=== PATIENT | male | born 1950 | race Caucasian/White ===

== ENCOUNTER 2020-12-14 14:02 | Inpatient (IN) | payer OTHER ==
[~2020-12-14] VITALS: Ht 193 cm; Wt 85.3 kg
[2020-12-14 14:07] VITALS: BP 154/108
[2020-12-14] MEDS ORDERED: ROSUVASTATIN CA20 MG PO (14:13)
[2020-12-14] MEDS ORDERED: COZAAR100 MG PO (14:14)
[2020-12-14 14:40] LABS: ABSOLUTE NEUTROPHILS 5.4 thou/uL (1.4-8.2); BASOPHILS 0.4 % (0.0-2.0); EOSINOPHILS 1.6 % (0.0-3.0); HEMATOCRIT 46.1 % (42.0-52.0); HEMOGLOBIN 15.4 gm/dL (14.0-18.0); LYMPHOCYTES 14.1 % (24.0-44.0); MCH 30.8 pg (26.0-34.0); MCHC 33.4 g/dL (28.0-37.0); MCV 92.4 fL (80.0-100.0); MONOCYTES 7.5 % (1.0-8.0); PLATELET COUNT 249 thou/uL (150-400); POLYS 76.4 % (36.0-66.0); RBC 4.99 mil/uL (4.50-6.00); RDW 14.4 % (10.5-14.5); WBC 7.1 thou/uL (4.0-11.0)
[2020-12-14 14:44] LABS: ANION GAP 13 mmol/L (7-16); BUN 19 mg/dL (7-18); CALCIUM 9.3 mg/dL (8.5-10.1); CHLORIDE 106 mmol/L (98-107); CO2 22 mmol/L (21-32); CREATININE 1.8 mg/dL (0.7-1.3); GLUCOSE 112 mg/dL (74-106); POTASSIUM 4.1 mmol/L (3.5-5.1); SODIUM 141 mmol/L (136-145)
[2020-12-14 14:55] LABS: ALBUMIN 4.3 g/dL (3.4-5.0); DIRECT BILIRUBIN 0.2 mg/dL (<0.1-0.2); SGOT 22 U/L (15-37); SGPT 30 U/L (30-65); TOTAL BILIRUBIN 0.8 mg/dL (0.2-1.0); TOTAL PROTEIN 7.7 g/dL (6.4-8.2); TROPONIN-I <0.06 ng/mL (<0.06)
[2020-12-14 16:03] VITALS: BP 110/78
--- NOTE | 2020-12-14 16:19 | EKG ---
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
[2020-12-14 16:26] VITALS: BP 92/57
--- NOTE | 2020-12-14 18:16 | NUR ---
PT IS AXOX4, PLEASANT. PT AT THE BEDSIDE. COMPLETED ADMISSION TO THE UNIT. CONDUCTED PT EDUCATION ON CURRENT DIAGNOSIS, MEDICATIONS. PT IS ON CARDIZEM DRIP AT 5ML/HR. POC IS TO CONTINUE TO MONITOR BP/HR. PT VSS, AFEBRILE. LOW FALL PRECAUTIONS IN PLACE. PT IS UP AD EFRA TO TOILET. NO CONCERNS AT THIS TIME.
[2020-12-14 20:04] VITALS: BP 96/53
[2020-12-15 00:09] VITALS: BP 94/60
[2020-12-15 04:12] VITALS: BP 109/71
[2020-12-15 05:48] LABS: ANION GAP 7 mmol/L (7-16); BUN 18 mg/dL (7-18); CALCIUM 8.7 mg/dL (8.5-10.1); CHLORIDE 108 mmol/L (98-107); CHOLESTEROL 125 mg/dL (<200); CO2 27 mmol/L (21-32); CREATININE 1.4 mg/dL (0.7-1.3); GLUCOSE 93 mg/dL (74-106); HDL CHOLESTEROL 36 mg/dL (>40); LDL CHOLESTEROL 71 mg/dL (<100); POTASSIUM 4.2 mmol/L (3.5-5.1); SODIUM 142 mmol/L (136-145); TC:HDL 3.5 Ratio (Not establshd); TRIGLYCERIDE 93 mg/dL (<150); VLDL 19 mg/dL (<40)
[2020-12-15 06:06] LABS: SERUM ASSESSMENT Clear
--- NOTE | 2020-12-15 07:48 | NUR ---
PT UP ADLIB IN ROOM, NO C/O PAIN, CARDIZEM GTT TITTRATED DOWN TO 5MG/HR AT 2300 AND TURNED OFF AT 0030 AFTER HR SLOWED TO MID 60'S AND PAUSES, WILL CON'T TO MONITOR PER PPOC.
[2020-12-15 07:51] VITALS: BP 119/70
--- NOTE | 2020-12-15 10:00 | 2DMMODE ---
[facility] [place] [address] 2 D/M-MODE ECHOCARDIOGRAM Name: KAYLA WYNN Room #: 209-P ADM IN M.R.#: [id number] Admission: 12/14/20 Attend Phys: Josef Moreno MD Discharge: Date of : 54 Report #: [id number] THIS REPORT FOR: cc: Narda Styles MD, Shazia MD Park, Jin S. MD ~ APPROVED REPORT Study performed: 12/15/2020 09:18:17 EXAM: Comprehensive 2D, Doppler, and color-flow Echocardiogram Patient Location: Bedside Room #: 209 Status: routine BSA: 2.12 HR: 133 bpm BP: 119/70 mmHg Rhythm: Atrial Flutter Other Information Study Quality: Good Indications Aflutter 2D Dimensions RVDd: 31.93 mm IVSd: 13.00 (7-11mm) LVOT Diam: 23.00 (18-24mm) LVDd: 40.00 mm PWd: 13.01 (7-11mm) Ascending Ao: 38.83 (22-36mm) LVDs: 27.71 (25-40mm) Left Atrium: 35.52 (27-40mm) Aortic Root: 43.25 mm Volumes Left Atrial Volume (Systole) Single Plane 4CH: 48.04 mL Single Plane 2CH: 62.61 mL LA ESV Index: 28.00 mL/m2 Aortic Valve AoV Peak Jon.: 1.06 m/s AO Peak Gr.: 4.49 mmHg LVOT Max P.76 mmHg LVOT Max V: 0.97 m/s CHICO Vmax: 3.76 cm2 [facility] [email or web address] [address] 2 D/M-MODE ECHOCARDIOGRAM Name: KAYLA WYNN Room #: 209-P ADM IN Jaclyn.#: [id number] Admission: 12/14/20 Attend Phys: Josef Moreno MD Discharge: Date of : 54 Report #: [id number] Pulmonary Valve PV Peak Jon.: 0.80 m/s PV Peak Gr.: 2.53 mmHg Tricuspid Valve TR Peak Jon.: 2.14 m/s RAP Estimate: 5.00 mmHg TR Peak Gr.: 18.39 mmHg PA Pressure: 23.00 mmHg Left Ventricle The left ventricle is normal size. There is normal LV segmental wall motion. Mild concentric left ventricular hypertrophy. Left ventricular systolic function is normal. LVEF is 60-65%. This study is not technically sufficient to allow evaluation of the LV diastolic function due to atrial flutter. Right Ventricle The right ventricle is normal size. The right ventricular systolic function is normal. Atria The left atrium size is normal. The right atrium size is normal. Aortic Valve The aortic valve is normal in structure. No aortic regurgitation is present. There is no aortic valvular stenosis. Mitral Valve The mitral valve is normal in structure. Trace mitral regurgitation. No evidence of mitral valve stenosis. Tricuspid Valve The tricuspid valve is normal in structure. Trace tricuspid regurgitation. Estimated PAP is 23mmHg. Pulmonic Valve The pulmonary valve is normal in structure. Trace pulmonic regurgitation. Great Vessels Aortic root is dilated at 4.3cm. The ascending aorta is mildly dilated at 3.9cm. IVC is normal in size and collapses >50% with inspiration. Pericardium [facility] [address] [place] [address] 2 D/M-MODE ECHOCARDIOGRAM Name: KAYLA WYNN Room #: 209-P ADM IN M.R.#: [id number] Admission: 12/14/20 Attend Phys: Josef Moreno MD Discharge: Date of : 54 Report #: [id number] Small posterior pericardial fluit noted. <Conclusion> The left ventricle is normal size. Mild concentric left ventricular hypertrophy. Left ventricular systolic function is normal. The right ventricle is normal size. The left atrium size is normal. The aortic valve is normal in structure. Trace mitral regurgitation. Trace tricuspid regurgitation. Estimated PAP is 23mmHg. <ELECTRONICALLY SIGNED> By: Kyler Arnett MD 12/15/20 1000 1000 1000 Kyler Arnett MD /INF
--- NOTE | 2020-12-15 10:04 | NUR ---
P.T. SCREENED PT THIS A.M. PT UP AD EFRA PER RN AND OBSERVED AMBULATING AROUND ROOM DEMONSTRATING A STEADY, RECIPROCAL GAIT. PERFORMING ADLS IN BATHROOM INDEP. HR RUNNING IN MID 80S. PT WITHOUT ACUTE P.T. NEEDS AT THIS TIME. REQUEST RE-CONSULT IF MOBILITY STATUS CHANGES AFTER COMPLETION OF CARDIOLOGY DIAGNOSTICS AND POSSIBLE INTERVENTION.
[2020-12-15 11:11] VITALS: BP 95/53
[2020-12-15 15:13] VITALS: BP 104/68
--- NOTE | 2020-12-15 16:51 | NUR ---
ASSUMED CARE OF PT AT SHIFT CHANGE. ASSESSMENT CHARTED. MEDS GIVEN PER DEC. PT A&OX4, NO C/O PAIN OR DISTRESS. PT IN A FLUTTER ON MONITOR, CARDIZEM DRIP AT 5, RATES 60-70. PLAN FOR CHRISTINA AND ABLATION TOMORROW. WILL CONTINUE TO MONITOR FOR CHANGES AND FOLLOW POC.
[2020-12-15 20:08] VITALS: BP 106/64
[2020-12-16] VITALS (16 sets, daily range): BP systolic 88–114; BP diastolic 57–79
--- NOTE | 2020-12-16 06:35 | NUR ---
Patient slept well through the night. Heart rate and rhythm stable atrial flutter in the 60's and 70's. Blood pressures stable. Cardizem continues at 5 mg/hr. Adequate oxygenation on room air. Up to BR to void, adequate amounts. NPO since midnight. Consent signed for am CHRISTINA and possible cardioversion. See documemtation on interventions for assessment details. Patient is progressing towards goals.
--- NOTE | 2020-12-16 11:22 | TEE ---
[facility] [place] [address] TRANSESOPHAGEAL ECHOCARDIOGRAM Name: KAYLA WYNN Room #: 209-P ADM IN M.R.#: [id number] Admission: 12/14/20 Attend Phys: Josef Moreno MD Discharge: Date of : 54 Report #: [id number] THIS REPORT FOR: cc: Narda Styles MD, Shazia MD Santiago, Patrick MD [facility] ~ APPROVED REPORT Study performed: 12/16/2020 10:34:16 EXAM: Comprehensive 2D, Doppler, and color-flow Echocardiogram Patient Location: Out-Patient Room #: 1 Status: routine BSA: 2.12 HR: 129 bpm BP: 120/70 mmHg Rhythm: Atrial Flutter Other Information Study Quality: Good Indications Atrial flutter Echo Enhancing Agent Indication: Rule out Shunt Agent(s) / Amount(s) Used: Agitated Saline 10 cc Procedure After obtaining informed consent, patient underwent transesophageal echo in the EP Lab. Type of Sedation : Conscious Sedation Sedation was administered by Anesthesiologist. Sedation start time: 1040 Case end Time: 1050 Sedation was achieved intravenously with: Versed (1 mg) Fentanyl (50 mcg) Propofol (100 mcg) Transesophageal probe was inserted and advanced into esophagus without difficulty by Ulices Velez MD. Echo enhancement indication: R/O Septal defect. Echo enhancement agent administered: Agitated Saline The CHRISTINA was performed without complications. Throughout the procedure, the blood pressure, pulse oximetry, cardiac [facility] [address] [place] [address] TRANSESOPHAGEAL ECHOCARDIOGRAM Name: KAYLA WYNN Room #: 209-P ADM IN M.R.#: [id number] Admission: 12/14/20 Attend Phys: Josef Moreno MD Discharge: Date of : 54 Report #: [id number] rhythm, and rate were monitored. The patient tolerated the procedure without adverse effects. Recovery from conscious sedation was uneventful and vital signs were stable. Left Ventricle The left ventricle is normal size. There is normal LV segmental wall motion. Mild concentric left ventricular hypertrophy. The left ventricular systolic function is normal. The left ventricular ejection fraction is within the normal range. LVEF is 60-65%. Right Ventricle The right ventricle is normal size. The right ventricular systolic function is normal. Atria The left atrium size is normal. The right atrium size is normal. Aortic Valve The aortic valve is normal in structure. No aortic regurgitation is present. There is no aortic valvular stenosis. Mitral Valve The mitral valve is normal in structure. Trace to mild mitral regurgitation. No evidence of mitral valve stenosis. Tricuspid Valve The tricuspid valve is normal in structure. There is no tricuspid valve regurgitation noted. Pulmonic Valve The pulmonary valve is normal in structure. There is no pulmonic valvular regurgitation. Great Vessels The aortic root is normal in size. Pericardium There is no pericardial effusion. <Conclusion> Anesthesia was present Atrial flutter present Patient was sedated for CHRISTINA and subsequent ablation After appropriate sedation, esophageal probe was advanced without [facility] [address] [place] [address] TRANSESOPHAGEAL ECHOCARDIOGRAM Name: KAYLA WYNN Room #: 209-P [facility] IN M.R.#: [id number] Admission: 12/14/20 Attend Phys: Josef Moreno MD Discharge: Date of : 54 Report #: [id number] difficulty Left atrial appendage, moderate size no obvious mass or clot detected Normal left ventricle size/wall thickness ejection fraction 60-65% Normal atrial size Color-flow Doppler study was performed of the aortic/mitral/tricuspid/pulmonary valve Normal aortic valve structure and function Mild mitral valve insufficiency No evidence of tricuspid valve insufficiency No evidence of ASD/VSD by color flow/bubble study No pericardial effusion <ELECTRONICALLY SIGNED> By: Ulices Velez MD, FACC 12/16/201120 20 20 Ulices Velez MD, FACC /INF
[2020-12-16 11:30] LABS: APTT 26.2 Seconds (24.5-32.8); PROTIME 11.1 Seconds (9.3-11.4)
[2020-12-16] MEDS ORDERED: ELIQUIS5 MG PO (12:16)
[2020-12-16] MEDS ORDERED: METOPROLOL SUCC25 M1 PO (12:16)
[2020-12-17 03:53] LABS: CALCIUM 8.7 mg/dL (8.5-10.1); CREATININE 1.3 mg/dL (0.7-1.3); POTASSIUM 4.3 mmol/L (3.5-5.1)
--- NOTE | 2020-12-17 04:05 | NUR ---
PT RESTING QUIETLY IN ROOM, VSS, RIGHT GROIN CDI, HR AND RHYTHM STABLE, NO C/O PAIN, PLANNING TO GO HOME THIS AM, WILL CONT' TO MOITOR PER PPOC.
[2020-12-17 04:35] VITALS: BP 118/76
[2020-12-17] MEDS ORDERED: ELIQUIS5 MG PO (08:57)
[2020-12-17 11:11] VITALS: BP 122/67
--- NOTE | 2020-12-17 12:04 | NUR ---
PT IS AXOX4, PLEASANT. PT WAS RESTING COMFORTBALY IN CHAIR, DENIES PAIN. CONCERNS FOR DISCHARGE WERE TO ASK DR FOR RX TO BE SENT TO [facility]. RN CONDUCTED PT EDUCATION ON RX MEDICATIONS. PT AT THE BEDSIDE. DR REYES CONSULTED. POC TO DISCHARGE PT HOME WITH VIA PERSONAL VEHICLE. DISCHARGE EDUCATION INCLUDED POST ABLATION CARE, MEDICATIONS, AND FOLLOW UP APPTS. PT COMMUNICATED UNDERSTANDING. NO CONCERNS AT THIS TIME.
--- NOTE | 2020-12-20 16:13 | HC ---
[facility] [place] [address] CONSULTATION Name: KAYLA WYNN Room #: 209-[facility] IN M.R.#: [id number] Admission: 12/14/20 Attend Phys: Josef Moreno MD Discharge: 12/17/20 Date of : 54 Report #: [id number] THIS REPORT FOR: cc: Narda Styles MD, Shazia MD Couchonnal, Luis F. MD ~ ELECTROPHYSIOLOGY CONSULTATION REASON FOR CONSULTATION: Atrial flutter. HISTORY OF PRESENT ILLNESS: The patient is a 70-year-old male with history of hypertension, hyperlipidemia, who presents to the hospital with an atrial flutter with rapid ventricular response. There have been difficulties with rate control and I have been asked to be consulted for possible ablation. In speaking with the patient, he is feeling better. Denies any chest pain or chest tightness. He denies PND or orthopnea. He denies presyncope or syncope. PAST MEDICAL HISTORY: As above. SOCIAL HISTORY: Does not smoke, does drink some bourbon. FAMILY HISTORY: Noncontributory. ALLERGIES: Have been reviewed. MEDICATIONS: Have been reviewed. He is currently on a diltiazem drip and started on Eliquis today. REVIEW OF SYSTEMS: A 12-point review of systems was performed, negative other than what I mentioned above. PHYSICAL EXAMINATION: VITAL SIGNS: Temperature is 36.4, pulse 66, respirations 16, blood pressure 104/68, sats 100%. GENERAL: He is in no acute distress. HEENT: Oropharynx is clear. NECK: Supple. No thyromegaly or carotid bruits. HEART: Irregularly irregular with no JVD. LUNGS: Clear to auscultation bilaterally. ABDOMEN: Soft, nontender, nondistended. No hepatosplenomegaly. EXTREMITIES: There is no clubbing, cyanosis, edema. NEUROLOGIC: Cranial nerves 2-12 are intact. PSYCHIATRIC: He is appropriate. LABORATORY DATA: Have been reviewed. Normal CBC, normal chemistry with a creatinine of 1.4. His troponin is negative. His 12-lead EKG showed classic [facility] [address] [place] [address] CONSULTATION Name: KAYLA WYNN Room #: 209-P [facility] IN M.R.#: [id number] Admission: 12/14/20 Attend Phys: Josef Moreno MD Discharge: 12/17/20 Date of : 54 Report #: [id number] typical atrial flutter. His echocardiogram I reviewed and shows EF of 60-65% with no significant valvular abnormalities. ASSESSMENT: 1. Typical atrial flutter. PLAN: We will obtain COVID-19 testing tonight. The patient will be made n.p.o. after midnight. He will undergo a CHRISTINA tomorrow. If there is no evidence of left atrial appendage thrombus, we will proceed with atrial flutter ablation. We have discussed the details of the procedure including the risks, which include but not limited to bleeding, vascular damage, stroke, NE, and damage to [place] conduction system. After the ablation, it is possible that he can go home tomorrow and will need to remain on anticoagulation for the next 6-12 months. We will need to monitor for the development of atrial fibrillation down the road. I thank you for allowing me to participate in his care. <ELECTRONICALLY SIGNED> By: Miguel Ryder MD 12/20/20 1613 1623 1810 Miguel Ryder MD /nt
--- NOTE | 2020-12-20 16:13 | P ---
[facility] [place] [address] PROCEDURE REPORT Name: KAYLA WYNN Room #: 209-P [facility] IN M.R.#: [id number] Admission: 12/14/20 Attend Phys: Josef Moreno MD Discharge: 12/17/20 Date of : 54 Report #: [id number] THIS REPORT FOR: cc: Narda Styles MD, Shazia MD Couchonnal, Luis F. MD ~ DATE OF SERVICE: 12/16/2020 PREOPERATIVE DIAGNOSIS: Typical atrial flutter. POSTOPERATIVE DIAGNOSIS: Typical atrial flutter. PROCEDURES PERFORMED: 1. SVT ablation, CPT code 88138. 2. EP left atrial pacing and recording, CPT code 10736. 3. Intracardiac echo, CPT code 00497. 4. 3D mapping, CPT code 96330. HISTORY OF PRESENT ILLNESS: The patient is a 70-year-old presenting with typical atrial flutter. He has had difficult to control rates and therefore, we will proceed with ablation. ANESTHESIA: The patient underwent MAC anesthesia with no anesthesia related complications. DESCRIPTION OF PROCEDURE: The patient underwent informed consent. We discussed the details of the procedure including the risks, which include but not limited to bleeding, vascular damage, stroke, [place] as well as damage to the [place] conduction system requiring permanent pacemaker. He understood these risks and is willing to proceed. The patient was brought to EP laboratory in fasting and sedated state. He underwent a transesophageal ultrasound showing no evidence of left atrial appendage thrombus. He was then prepped for ablation. I obtained access to the right femoral vein x 3, placing an 8, 9 and 7-Icelandic short sheath and under fluoroscopy, I placed a decapolar catheter into the coronary sinus and ICE catheter into the right atrium. At baseline, the patient was in atrial flutter with a ventricular cycle length of 495 milliseconds, QRS duration 90 milliseconds, QT interval 300 milliseconds and an atrial cycle length of 250 milliseconds with a proximal to distal activation along the coronary sinus. An 8 mm ablation catheter was placed into the right atrium and a 3D geometry of the right atrium was created. Using intracardiac ultrasound, I also delineated the cavotricuspid isthmus, which had a slight pouch at the posterior aspect. Next, I performed entrainment from 6 o'clock along the cavotricuspid isthmus and the PPI minus tachycardia cycle length was 30 milliseconds consistent with cavotricuspid isthmus dependent flutter. [facility] [address] [place] [address] PROCEDURE REPORT Name: KAYLA WYNN Room #: 209-P [facility] IN M.R.#: [id number] Admission: 12/14/20 Attend Phys: Josef Moreno MD Discharge: 12/17/20 Date of : 54 Report #: [id number] Ablation was performed using the 8 mm catheter via a ramp sheath and this was performed at 70 dodd and 60 degrees. Continuous drag lesion was performed until the atrial flutter terminated. I then checked and there was evidence of bidirectional block with a transisthmus conduction time of 155 milliseconds. Additional ablation was performed along the prior ablation line to ensure that we did not develop reconnection. Next, a basic EP study was performed and AV block was noted at 360 milliseconds. AV homa ERP was noted at 360 milliseconds and a [address] cycle length. Aggressive atrial burst pacing was performed between 250-300 milliseconds and I could not induce any AFib or atrial flutter. Post-ablation, he was in sinus rhythm with a sinus cycle length of 922 milliseconds, DE interval 193 milliseconds, QRS duration 89 milliseconds, QT interval 470 milliseconds, AH interval 114 milliseconds, and HV interval of 45 milliseconds. As such, the procedure was concluded. There was no evidence of pericardial effusion. Post-ablation, catheters and sheaths were pulled and hemostasis was obtained. CONCLUSIONS: 1. Successful ablation of cavotricuspid isthmus dependent flutter with evidence of bidirectional block. 2. Normal SA homa function. 3. Normal AV homa function. 4. Normal His-Purkinje function. 5. No other inducible arrhythmias on EP study. <ELECTRONICALLY SIGNED> By: Miguel Ryder MD 12/20/20 1613 1103 1139 Miguel Ryder MD /nt
== END 2020-12-17 12:18 | disposition home or self-care (01) | DRG 273 ==
LOC: ER 14:02 → 2N 15:25 → EROBS 15:25 → 2N 16:26
PROVIDERS: Emergency Medicine; Internal Medicine Cardiovascular Disease; Nurse Practitioner; ADMIT Internal Medicine; ATTEND Internal Medicine
DX: I48.3 Typical atrial flutter (principal); N17.0 Acute kidney failure with tubular necrosis; E78.5 Hyperlipidemia, unspecified; Z20.822 Contact with and (suspected) exposure to COVID-19; I44.30 Unspecified atrioventricular block; I10 Essential (primary) hypertension; I48.20 Chronic atrial fibrillation, unspecified; I45.2 Bifascicular block; Z79.899 Other long term (current) drug therapy
CPT/HCPCS: 10081; 62110; 62900; 70005

== ENCOUNTER → 2021-01-25 | Outpatient (CLI) | payer OTHER ==
[~2021-01-25] MED LIST: COZAAR100 MG PO; ELIQUIS5 MG PO; METOPROLOL SUCC25 M1 PO; ROSUVASTATIN CA20 MG PO
== END ==
LOC: SJCVCIMAG 01-06 08:26
PROVIDERS: ATTEND Internal Medicine Cardiovascular Disease
DX: I49.1 Atrial premature depolarization (principal); R00.1 Bradycardia, unspecified; I48.92 Unspecified atrial flutter; I12.9 Hypertensive chronic kidney disease with stage 1 through stage 4 chronic kidney disease, or unspecified chronic kidney disease; N18.9 Chronic kidney disease, unspecified; E78.00 Pure hypercholesterolemia, unspecified; E78.5 Hyperlipidemia, unspecified; R42 Dizziness and giddiness; R61 Generalized hyperhidrosis; Z79.899 Other long term (current) drug therapy; Z72.89 Other problems related to lifestyle

== ENCOUNTER → 2021-04-05 | Outpatient (CLI) | payer OTHER | LOC: SJCVC 09:27 | PROVIDERS: ATTEND Internal Medicine Cardiovascular Disease | DX: R94.31 Abnormal electrocardiogram [ECG] [EKG] (principal); R00.1 Bradycardia, unspecified; I48.3 Typical atrial flutter; I12.9 Hypertensive chronic kidney disease with stage 1 through stage 4 chronic kidney disease, or unspecified chronic kidney disease; N18.9 Chronic kidney disease, unspecified; E78.5 Hyperlipidemia, unspecified; I48.92 Unspecified atrial flutter; Z79.899 Other long term (current) drug therapy; Z72.89 Other problems related to lifestyle ==

== ENCOUNTER → 2021-07-05 | Outpatient (CLI) | payer OTHER | LOC: SJCVC 09:57 | PROVIDERS: ATTEND Internal Medicine Cardiovascular Disease | DX: R00.1 Bradycardia, unspecified (principal); I48.3 Typical atrial flutter; I12.9 Hypertensive chronic kidney disease with stage 1 through stage 4 chronic kidney disease, or unspecified chronic kidney disease; N18.9 Chronic kidney disease, unspecified; E78.00 Pure hypercholesterolemia, unspecified; Z72.89 Other problems related to lifestyle ==

== ENCOUNTER → 2021-07-20 | Outpatient (CLI) | payer OTHER | LOC: CAT 09:32 | PROVIDERS: ATTEND Internal Medicine Cardiovascular Disease | DX: Z13.6 Encounter for screening for cardiovascular disorders (principal); E78.00 Pure hypercholesterolemia, unspecified; I25.10 Atherosclerotic heart disease of native coronary artery without angina pectoris ==

== ENCOUNTER → 2021-07-27 | Outpatient (CLI) | payer OTHER | LOC: SJCVC 09:58 | PROVIDERS: ATTEND Internal Medicine Cardiovascular Disease | DX: E78.00 Pure hypercholesterolemia, unspecified (principal); I48.92 Unspecified atrial flutter; I25.10 Atherosclerotic heart disease of native coronary artery without angina pectoris; I10 Essential (primary) hypertension; R00.1 Bradycardia, unspecified; E78.5 Hyperlipidemia, unspecified; Z79.82 Long term (current) use of aspirin; Z79.899 Other long term (current) drug therapy; Z72.89 Other problems related to lifestyle ==